=== PATIENT | male | born 1955 | race Caucasian/White ===

== ENCOUNTER 2024-06-25 12:22 | Outpatient (CLI) | payer MEDICARE, SELFPAY ==
--- NOTE | ~2024-06-25 | XR_ITS ---
EXAM: XR foot RT min 3V DATE: 06/25/2024 12:47 HISTORY: Acute pain . COMPARISON: None available. FINDINGS: Osteopenia. No fracture or dislocation. 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 No lytic or blastic lesion. Mild scattered degenerative changes. Large os cuboidium. Achilles and plantar enthesopathy. No erosion or periosteal change. Soft tissues within normal limits. IMPRESSION: No acute osseous finding in the right foot. Specifically, no radiographic evidence of ost eomyelitis. Reviewed, dictated and finalized at location [facility] IMPRESSION: No acute osseous finding in the right foot. Specifically, no radiog raphic evidence of osteomyelitis.
== END 2024-06-25 12:23 | disposition home or self-care (01) ==
PROVIDERS: PCP Family Medicine; Visit Provider Family Medicine
DX: M79.671 Pain in right foot (principal); G62.9 Polyneuropathy, unspecified
CPT/HCPCS: 73630